=== PATIENT | female | born 1955 ===

== ENCOUNTER 2017-11-10 08:43 | Day surgery (SDC) | payer MEDICAID ==
[2017-11-10] MEDS ORDERED: Propofol 10 mg/ml Inj (20 ML) ONE (12:09)
[2017-11-10] MEDS ORDERED: Lidocaine 2% MPF (5 ml) Inj ONE (12:09)
[2017-11-10] MEDS ORDERED: Lactated Ringer's 1,000 ML IV ONE (12:12)
[2017-11-10 12:58] VITALS: BP 117/41; PULSE 68; RESP 17; TEMP 97; O2SAT 97
== END 2017-11-10 13:38 | disposition home or self-care (01) ==
LOC: H.ENDO 08:43
PROVIDERS: ATTEND Internal Medicine Gastroenterology
DX: Z12.11 Encounter for screening for malignant neoplasm of colon (principal); E11.9 Type 2 diabetes mellitus without complications; I10 Essential (primary) hypertension; E03.9 Hypothyroidism, unspecified; K64.8 Other hemorrhoids; K57.30 Diverticulosis of large intestine without perforation or abscess without bleeding
CPT/HCPCS: 45378; J2704; J7120

== ENCOUNTER 2019-03-13 16:13 | Inpatient (IN) | payer MEDICAID ==
--- NOTE | 2019-03-13 16:57 | ED PDOC ---
HPI: SOB/CHF/COPD Time Seen by Provider: 03/13/19 16:26 Chief Complaint (Nursing): Shortness Of Breath Chief Complaint (Provider): Shortness Of Breath History Per: Patient History/Exam Limitations: no limitations Onset/Duration Of Symptoms: Persistent, Worse Since (last night) Current Symptoms Are (Timing): Still Present Additional Complaint(s): 63 year old female with medical history of diabetes and hypertension, arrives to the emergency department with friend present as nuclear powerplant mechanic (preferred) for an evaluation of intermittent shortness of breath since last night. Additionally, she reports leg swelling bilaterally for the past 3-4 weeks. Patient was seen by her PCP recently with (-) findings on lower extremities ultrasound. Otherwise, she denies othropnea, chest pain, palpitations, cough, fever, chills, or similar episodes in the past. Past Medical History Reviewed: Historical Data, Nursing Documentation, Vital Signs Vital Signs: Last Vital Signs Temp 99.2 F 03/13/19 16:30 Pulse 74 03/13/19 16:30 Resp 20 03/13/19 16:30 BP 142/60 03/13/19 16:30 Pulse Ox 98 03/13/19 16:30 Primary Care Provider: [place] - Medical History PMH: Diabetes, HTN, Hypothyroidism - Surgical History Surgical History: CABG - Family History Family History: States: Unknown Family Hx - Social History Current smoker - smoking cessation education provided: No Alcohol: None Drugs: Denies - Home Medications Home Medications: Ambulatory Orders Medication Instructions Recorded Aspirin [Ecotrin] 1 tab PO DAILY 11/10/17 Atorvastatin [Lipitor] 1 tab PO DAILY 11/10/17 Carvedilol [Coreg] 1 tab PO DAILY 11/10/17 Clopidogrel [Plavix] 1 tab PO DAILY 11/10/17 Levothyroxine [Synthroid] 1 tab PO DAILY 11/10/17 Niacin [Plain Niacin] 1 tab PO DAILY 11/10/17 Pantoprazole [Protonix EC Tab] 1 tab PO DAILY 11/10/17 Valsartan/Hydrochlorothiazide 1 tab PO DAILY 11/10/17 [Valsartan-Hctz 320-25 mg Tab] amLODIPine [Norvasc] 1 tab PO DAILY 11/10/17 Insulin Glargine,Hum.rec.anlog 100 unit SQ HS 03/14/19 [Basaglar Kwikpen U-100] Insulin Lispro Mix 75/25 [HumaLOG 1 units SC BID PRN 03/14/19 Mix 75/25] Cyanocobalamin [Vitamin B12 1000 1,000 mcg PO DAILY #30 tab 03/15/19 mcg Tab] Magnesium Oxide [Mag-Ox] 400 mg PO DAILY #30 tab 03/15/19 MetFORMIN [glucoPHAGE] 1,000 mg PO BIDWM #60 tab 03/15/19 - Allergies Allergies/Adverse Reactions: Allergies Allergy/AdvReac Type Severity Reaction Status Date / Time No Known Allergies Allergy Verified 03/13/19 16:15 Review of Systems ROS Statement: Except As Marked, All Systems Reviewed And Found Negative Constitutional: Negative for: Fever, Chills Cardiovascular: Negative for: Chest Pain, Palpitations Respiratory: Positive for: Shortness of Breath. Negative for: Cough, Other (orthopnea) Musculoskeletal: Positive for: Other (bilateral leg swelling) Physical Exam - Reviewed Nursing Documentation Reviewed: Yes Vital Signs Reviewed: Yes - Physical Exam Appears: Positive for: Non-toxic, No Acute Distress Head Exam: Positive for: ATRAUMATIC, NORMAL INSPECTION, NORMOCEPHALIC Skin: Positive for: Normal Color Eye Exam: Positive for: Normal appearance, EOMI, PERRL ENT: Positive for: Normal ENT Inspection Neck: Positive for: Normal, Supple Cardiovascular/Chest: Positive for: Regular Rate, Rhythm Respiratory: Positive for: Crackles (right base). Negative for: Respiratory Distress Gastrointestinal/Abdominal: Positive for: Normal Exam, Soft. Negative for: Tenderness Extremity: Positive for: Pedal Edema (+3 pitting edema bilaterally). Negative for: Calf Tenderness Neurological/Psych: Positive for: Awake, Alert, Normal Tone, Other (speaking full sentences with clear speech) - Laboratory Results Result Diagrams: 03/15/19 11:50 03/15/19 04:50 - ECG Interpretation Of ECG: NSR @ 68, no ST-T changes. O2 Sat by Pulse Oximetry: 98 (RA) Pulse Ox Interpretation: Normal Medical Decision Making Medical Decision Making: Time: 910 Initial Plan: * EKG * Labs * CXR * US duplex LE Scribe Attestation: Documented by Iesha Mccann, acting as a scribe for Jonna Ferrer MD. Provider Scribe Attestation: All medical record entries made by the Scribe were at my direction and personally dictated by me. I have reviewed the chart and agree that the record accurately reflects my personal performance of the history, physical exam, medical decision making, and the department course for this patient. I have also personally directed, reviewed, and agree with the discharge instructions and disposition. Disposition - Clinical Impression Clinical Impression: CHF (congestive heart failure) - Disposition Disposition: Transfer of Care Disposition Time: 19:00 Condition: STABLE Patient Signed Over To: Terese Downing
[2019-03-13 17:03] LABS: BASO % 0.5 % (0.0-2.0); EOS # 0.1 K/uL (0.0-0.7); EOS % 1.5 % (0.0-4.0); HEMOGLOBIN 9.9 g/dL (12.0-16.0); LYMPH # 1.8 K/uL (1.0-4.3); LYMPH % 23.4 % (20.0-40.0); MEAN CELL VOLUME 86.5 fl (81.0-99.0); MEAN CORPUSCULAR HEMOGLOBIN 28.8 pg (27.0-31.0); MEAN CORPUSCULAR HGB CONC 33.3 g/dL (33.0-37.0); MEAN PLATELET VOLUME 10.7 fl (7.2-11.7); MONO # 0.7 K/uL (0.0-0.8); NEUT % 65.6 % (50.0-75.0); RBC 3.44 Mil/uL (3.80-5.20); RED CELL DISTRIBUTION WIDTH 14.1 % (11.5-14.5); WHITE BLOOD COUNT 7.6 K/uL (4.8-10.8)
[2019-03-13 17:09] LABS: PROTHROMBIN TIME 11.5 Seconds (9.8-13.1)
[2019-03-13 17:10] LABS: PARTIAL THROMBOPLASTIN TIME 32.8 Seconds (25.6-37.1)
--- NOTE | 2019-03-13 17:48 | RAD ---
Date of service: 03/13/2019 HISTORY: SOB COMPARISON: 09/14/2012 TECHNIQUE: Chest PA and lateral views FINDINGS: LUNGS: No active pulmonary disease. PLEURA: No significant pleural effusion identified. No pneumothorax apparent. CARDIOVASCULAR: No aortic atherosclerotic calcification present. Normal cardiac size. Status post CABG. No congestive change. OSSEOUS STRUCTURES: No significant abnormalities. VISUALIZED UPPER ABDOMEN: Normal. OTHER FINDINGS: None. IMPRESSION: No active disease.
--- NOTE | 2019-03-13 17:50 | US ---
Date of service: 03/13/2019 PROCEDURE: Bilateral lower extremity venous duplex Doppler. HISTORY: BLE swelling COMPARISON: None available. TECHNIQUE: Bilateral common femoral, superficial femoral, popliteal and posterior tibial veins were evaluated. Flow was assessed with color Doppler, compressibility, assessment of phasic flow and augmentation response. FINDINGS: COMMON FEMORAL VEIN: Right CFV: Unremarkable. Left CFV: Unremarkable. SUPERFICIAL FEMORAL VEIN: Right SFV: Unremarkable. Left SFV: Unremarkable. POPLITEAL VEIN: Right Popliteal: Unremarkable. Left Popliteal: Unremarkable. POSTERIOR TIBIAL VEIN: Right PTV: Unremarkable. Left PTV: Unremarkable. OTHER FINDINGS: None. IMPRESSION: No evidence of deep venous thrombosis in the right or left lower extremity
[2019-03-13 18:07] LABS: ALB/GLOB RATIO 1.2 (1.0-2.1); ALT/SGPT 17 U/L (9-52); AST/SGOT 18 U/L (14-36); BLOOD UREA NITROGEN 14 mg/dl (7-17); CALCIUM 8.6 mg/dL (8.4-10.2); GFR NON-AFRICAN AMERICAN > 60
[2019-03-13 18:19] LABS: B-TYPE NATRIURETIC PEPTIDE 1140 pg/ml (0-900)
[2019-03-13 18:31] LABS: SQUAMOUS EPITHIAL 1 /hpf (0-5); URINE BILIRUBIN NEGATIVE (NEGATIVE); URINE BLOOD NEGATIVE (NEGATIVE); URINE CLARITY CLEAR (Clear); URINE COLOR STRAW (YELLOW); URINE GLUCOSE (UA) NEG (NEGATIVE); URINE LEUKOCYTE ESTERASE TRACE Leu/uL (Negative); URINE PROTEIN NEGATIVE (NEGATIVE); URINE UROBILINOGEN 0.2-1.0 mg/dL (0.2-1.0)
[2019-03-13] MEDS ORDERED: Sodium Chloride 0.9% 50 ML IV ONE (18:32)
[2019-03-13] MEDS ORDERED: Iodixanol 320 MG/ML 100 ML BOTTLE IV ONE (18:32)
--- NOTE | 2019-03-13 19:11 | ED PDOC ---
- Laboratory Results Result Diagrams: 03/14/19 06:10 03/14/19 06:10 Lab Results: PT 11.5 Seconds (9.8-13.1) 03/13/19 16:56 INR 1.0 03/13/19 16:56 APTT 32.8 Seconds (25.6-37.1) 03/13/19 16:56 D-Dimer, Quantitative 347 ng/mlDDU (0-230) H 03/13/19 16:56 Troponin I < 0.0120 ng/mL (0.00-0.120) 03/13/19 17:53 NT-Pro-B Natriuret Pep 1140 pg/ml (0-900) H 03/13/19 17:53 Total Bilirubin 0.6 mg/dl (0.2-1.3) 03/13/19 17:53 AST 18 U/L (14-36) 03/13/19 17:53 ALT 17 U/L (9-52) 03/13/19 17:53 Alkaline Phosphatase 88 U/L (38-126) 03/13/19 17:53 Total Protein 7.3 G/DL (6.3-8.2) 03/13/19 17:53 Albumin 4.0 g/dL (3.5-5.0) 03/13/19 17:53 Globulin 3.3 gm/dL (2.2-3.9) 03/13/19 17:53 Albumin/Globulin Ratio 1.2 (1.0-2.1) 03/13/19 17:53 Urine Color Straw (YELLOW) 03/13/19 18:17 Urine Clarity Clear (Clear) 03/13/19 18:17 Urine pH 7.0 (5.0-8.0) 03/13/19 18:17 Ur Specific [place] 1.008 (1.003-1.030) 03/13/19 18:17 Urine Protein Negative mg/dL (NEGATIVE) 03/13/19 18:17 Urine Glucose (UA) Neg mg/dL (NEGATIVE) 03/13/19 18:17 Urine Ketones Negative mg/dL (NEGATIVE) 03/13/19 18:17 Urine Blood Negative (NEGATIVE) 03/13/19 18:17 Urine Nitrate Negative (NEGATIVE) 03/13/19 18:17 Urine Bilirubin Negative (NEGATIVE) 03/13/19 18:17 Urine Urobilinogen 0.2-1.0 mg/dL (0.2-1.0) 03/13/19 18:17 Ur Leukocyte Esterase Trace Teodoro/uL (Negative) 03/13/19 18:17 Urine RBC (Auto) < 1 /hpf (0-3) 03/13/19 18:17 Urine Microscopic WBC 2 /hpf (0-5) 03/13/19 18:17 Ur Squamous Epith Cells 1 /hpf (0-5) 03/13/19 18:17 - ECG O2 Sat by Pulse Oximetry: 98 (RA) Medical Decision Making Medical Decision Makin Patient care endorsed from Dr. Ferrer to this provider pending CTA and reevaluation. CTA FINDINGS: PULMONARY ARTERIES No evidence of central or segmental pulmonary embolism is seen. AORTA There is no evidence for aneurysm or dissection of the thoracic aorta. LUNGS There is a patchy infiltrate both lungs particularly the right lung base with underlying interstitial edema and vascular congestion suspected. PLEURAL SPACES Small right pleural effusion and minimal left pleural effusion. HEART Heart is increased in size. LYMPH NODES No lymphadenopathy is evident. BONES Sternotomy wires present. UPPER ABDOMEN Images of the upper abdomen are unremarkable. IMPRESSION: No evidence of primary embolic disease. Underlying mild congestive heart failure suspected. Mild patchy infiltrate both lungs particularly right lower lung. Small right pleural effusion and small left pleural effusion. Enlarged heart. Sternotomy wires. 2038 Pro-BNP elevated to 1140. CTA shows possible pneumonia in right lower lung especially, but WBCs normal. Likely CHF vs. pneumonia and will admit to [facility]. chandler king aware. Scribe Attestation: Documented by Tara Macdonald, acting as a scribe for Terese Downing MD. Provider Scribe Attestation: All medical record entries made by the Scribe were at my direction and personally dictated by me. I have reviewed the chart and agree that the record accurately reflects my personal performance of the history, physical exam, medical decision making, and the department course for this patient. I have also personally directed, reviewed, and agree with the discharge instructions and disposition. Disposition - Clinical Impression Clinical Impression: CHF (congestive heart failure) - POA Present On Arrival: None - Disposition Disposition: Admitted as In-Patient Disposition Time: 20:30 Condition: STABLE
[2019-03-13] MEDS ORDERED: Azithromycin 500 MG in Sodium Chloride 0.9% 250 ML IVPB STA (20:40)
[2019-03-13] MEDS ORDERED: cefTRIAXone (Rocephin) 1 gm Inj ONE (23:48)
[2019-03-14] MEDS ORDERED: Azithromycin 500 MG IV IVPB ONE (01:52)
[2019-03-14 06:30] LABS: BASO % 0.5 % (0.0-2.0); EOS # 0.1 K/uL (0.0-0.7); EOS % 0.9 % (0.0-4.0); LYMPH # 1.8 K/uL (1.0-4.3); LYMPH % 21.9 % (20.0-40.0); MEAN CORPUSCULAR HEMOGLOBIN 28.7 pg (27.0-31.0); MEAN PLATELET VOLUME 10.8 fl (7.2-11.7); MONO # 0.6 K/uL (0.0-0.8); MONO % 7.3 % (0.0-10.0); NEUT # 5.6 K/uL (1.8-7.0); NEUT % 69.4 % (50.0-75.0); NRBC % 0.1 % (0.0-0.0); RBC 3.49 Mil/uL (3.80-5.20); RED CELL DISTRIBUTION WIDTH 13.8 % (11.5-14.5); WHITE BLOOD COUNT 8.1 K/uL (4.8-10.8)
[2019-03-14 06:57] LABS: ALB/GLOB RATIO 1.2 (1.0-2.1); ALT/SGPT 21 U/L (9-52); AST/SGOT 21 U/L (14-36); BLOOD UREA NITROGEN 14 mg/dl (7-17); CALCIUM 8.9 mg/dL (8.4-10.2); GFR NON-AFRICAN AMERICAN > 60
--- NOTE | 2019-03-14 07:43 | CT ---
Date of service: 03/13/2019 PROCEDURE: CT Chest with contrast (Pulmonary Angiogram) HISTORY: SOB COMPARISON: None available. TECHNIQUE: Axial computed tomography images were obtained of the chest in the pulmonary arterial phase of enhancement. Coronal and sagittal reformatted images were created and reviewed. Intravenous contrast dose: 73 cc Visipaque 320. Mean Hounsfield value in the main pulmonary artery: 312.89 Radiation dose: Total exam DLP = 367.52 mGy-cm. This CT exam was performed using one or more of the following dose reduction techniques: Automated exposure control, adjustment of the mA and/or kV according to patient size, and/or use of iterative reconstruction technique. FINDINGS: PULMONARY ARTERIES: Unremarkable. No pulmonary embolism. AORTA: No acute findings. No thoracic aortic aneurysm. Atherosclerotic calcifications identified primarily aortic arch. LUNGS: 5 mm pulmonary nodule anterior segment right upper lobe. 5 mm pulmonary nodule superior segment left lower lobe. Multifocal infiltrates. Thickening of interlobular septa. PLEURAL SPACES: Trace right pleural effusion. HEART: Unremarkable. No cardiomegaly. No significant pericardial effusion. LYMPH NODES: No lymphadenopathy. BONES, CHEST WALL: Unremarkable. No fracture or destructive lesion OTHER FINDINGS: Unremarkable. IMPRESSION: Unremarkable CT pulmonary angiogram. No pulmonary embolus. Pulmonary vascular congestion/CHF. Associated trace right pleural effusion. There are multiple pulmonary nodules that are < 6 mm in size. According to the 2017 Fleischner criteria, if the patient is low risk, no routine follow-up is recommended. If the patient is high risk, an optional CT at 12 months is recommended. Concordant results (preliminary interpretation) provided by [employer]. Procedure Completed: 18:36. Preliminary Report: Interpreted and electronically signed: 20:08. Final Interpretation: 07:39.
--- NOTE | 2019-03-14 09:15 | CP.PCM.HP ---
History of Present Illness - History of Present Illness History of Present Illness: pt admitted for new onset chf. had progressive leg swelling and dyspnea on exertion. no f/,c n/v/d. cxr negative. ct chest-patchy infiltrate. no reported cough/fever. all bwand imaging noted. Present on Admission - Present on Admission Any Indicators Present on Admission: Yes History of Uncontrolled Diabetes: Yes Review of Systems - Cardiovascular Cardiovascular: As Per HPI, Pedal Edema - Respiratory Respiratory: As Per HPI, Dyspnea on Exertion Past Patient History - Past Medical History & Family History Past Medical History?: Yes - Past Social History Alcohol: None Drugs: Denies - CARDIAC Hx Cardiac Disorders: Yes - ENDOCRINE/METABOLIC Hx Endocrine Disorders: Yes - PSYCHIATRIC Hx Substance Use: No - SURGICAL HISTORY Hx Coronary Artery Bypass Graft: Yes - ANESTHESIA Hx Anesthesia: Yes Hx Anesthesia Reactions: No Hx Malignant Hyperthermia: No Meds Allergies/Adverse Reactions: Allergies Allergy/AdvReac Type Severity Reaction Status Date / Time No Known Allergies Allergy Verified 03/13/19 16:15 Physical Exam - Constitutional Appears: Well, Non-toxic, No Acute Distress - Head Exam Head Exam: ATRAUMATIC, NORMAL INSPECTION, NORMOCEPHALIC - Eye Exam Eye Exam: EOMI, Normal appearance, PERRL Pupil Exam: NORMAL ACCOMODATION, PERRL - ENT Exam ENT Exam: Mucous Membranes Moist, Normal Exam - Neck Exam Neck exam: Positive for: Normal Inspection - Respiratory Exam Respiratory Exam: Clear to Auscultation Bilateral, NORMAL BREATHING PATTERN - Cardiovascular Exam Cardiovascular Exam: REGULAR RHYTHM, RRR, +S1, +S2 - GI/Abdominal Exam GI & Abdominal Exam: Normal Bowel Sounds, Soft. absent: Tenderness - Extremities Exam Extremities exam: Positive for: full ROM, normal capillary refill, normal inspe ction, pedal edema, pedal pulses present - Back Exam Back exam: FULL ROM, NORMAL INSPECTION - Neurological Exam Neurological exam: Alert, CN II-XII Intact, Normal Gait, Oriented x3, Reflexes Normal - Psychiatric Exam Psychiatric exam: Normal Affect, Normal Mood - Skin Skin Exam: Dry, Intact, Normal Color, Warm Results - Vital Signs Recent Vital Signs: Last Vital Signs Temp 98.5 F 03/14/19 07:30 Pulse 69 03/14/19 08:56 Resp 18 03/14/19 08:56 BP 140/76 03/14/19 08:56 Pulse Ox 96 03/14/19 08:56 - Labs Result Diagrams: 03/14/19 06:10 03/14/19 06:10 Labs: Laboratory Results - last 24 hr 03/13/19 03/13/19 03/13/19 16:56 16:56 16:56 WBC 7.6 RBC 3.44 L Hgb 9.9 L Hct 29.7 L MCV 86.5 MCH 28.8 MCHC 33.3 RDW 14.1 Plt Count 277 MPV 10.7 Neut % (Auto) 65.6 Lymph % (Auto) 23.4 [place] % (Auto) 9.0 Eos % (Auto) 1.5 Baso % (Auto) 0.5 Neut # (Auto) 5.0 Lymph # (Auto) 1.8 [place] # (Auto) 0.7 Eos # (Auto) 0.1 Baso # (Auto) 0.0 PT 11.5 INR 1.0 APTT 32.8 D-Dimer, Quantitative 347 H Sodium Cancelled Potassium Cancelled Chloride Cancelled Carbon Dioxide Cancelled Anion Gap Cancelled BUN Cancelled Creatinine Cancelled Est GFR ( Amer) Cancelled Est GFR (Non-Af Amer) Cancelled POC Glucose (mg/dL) Random Glucose Cancelled Calcium Cancelled Total Bilirubin Cancelled AST Cancelled ALT Cancelled Alkaline Phosphatase Cancelled Troponin I Cancelled NT-Pro-B Natriuret Pep Cancelled Total Protein Cancelled Albumin Cancelled Globulin Cancelled Albumin/Globulin Ratio Cancelled Urine Color Urine Clarity Urine pH Ur Specific [place] Urine Protein Urine Glucose (UA) Urine Ketones Urine Blood Urine Nitrate Urine Bilirubin Urine Urobilinogen Ur Leukocyte Esterase Urine RBC (Auto) Urine Microscopic WBC Ur Squamous Epith Cells 03/13/19 03/13/19 03/14/19 17:53 18:17 06:10 WBC 8.1 RBC 3.49 L Hgb 10.0 L Hct 30.4 L MCV 87.0 MCH 28.7 MCHC 33.0 RDW 13.8 Plt Count 230 MPV 10.8 Neut % (Auto) 69.4 Lymph % (Auto) 21.9 [place] % (Auto) 7.3 Eos % (Auto) 0.9 Baso % (Auto) 0.5 Neut # (Auto) 5.6 Lymph # (Auto) 1.8 [place] # (Auto) 0.6 Eos # (Auto) 0.1 Baso # (Auto) 0.0 PT INR APTT D-Dimer, Quantitative Sodium 138 Potassium 4.5 Chloride 101 Carbon Dioxide 26 Anion Gap 16 BUN 14 Creatinine 0.8 Est GFR ( Amer) > 60 Est GFR (Non-Af Amer) > 60 POC Glucose (mg/dL) Random Glucose 138 H Calcium 8.6 Total Bilirubin 0.6 AST 18 ALT 17 Alkaline Phosphatase 88 Troponin I < 0.0120 NT-Pro-B Natriuret Pep 1140 H Total Protein 7.3 Albumin 4.0 Globulin 3.3 Albumin/Globulin Ratio 1.2 Urine Color Straw Urine Clarity Clear Urine pH 7.0 Ur Specific [place] 1.008 Urine Protein Negative Urine Glucose (UA) Neg Urine Ketones Negative Urine Blood Negative Urine Nitrate Negative Urine Bilirubin Negative Urine Urobilinogen 0.2-1.0 Ur Leukocyte Esterase Trace Urine RBC (Auto) < 1 Urine Microscopic WBC 2 Ur Squamous Epith Cells 1 03/14/19 03/14/19 03/14/19 06:10 06:10 07:50 WBC RBC Hgb Hct MCV MCH MCHC RDW Plt Count MPV Neut % (Auto) Lymph % (Auto) [place] % (Auto) Eos % (Auto) Baso % (Auto) Neut # (Auto) Lymph # (Auto) [place] # (Auto) Eos # (Auto) Baso # (Auto) PT INR APTT D-Dimer, Quantitative Sodium 139 Potassium 4.3 Chloride 98 Carbon Dioxide 31 H Anion Gap 14 BUN 14 Creatinine 0.7 Est GFR ( Amer) > 60 Est GFR (Non-Af Amer) > 60 POC Glucose (mg/dL) 135 H Random Glucose 149 H Calcium 8.9 Total Bilirubin 0.6 AST 21 ALT 21 Alkaline Phosphatase 89 Troponin I < 0.0120 NT-Pro-B Natriuret Pep 1410 H Total Protein 7.4 Albumin 4.0 Globulin 3.4 Albumin/Globulin Ratio 1.2 Urine Color Urine Clarity Urine pH Ur Specific [place] Urine Protein Urine Glucose (UA) Urine Ketones Urine Blood Urine Nitrate Urine Bilirubin Urine Urobilinogen Ur Leukocyte Esterase Urine RBC (Auto) Urine Microscopic WBC Ur Squamous Epith Cells Assessment & Plan (1) CHF (congestive heart failure) Assessment and Plan: echo cardio probnp,trop lasix in er asa, lipitor-pt takes at home Status: Acute (2) DVT prophylaxis Assessment and Plan: scd nad ae hose ambulation Status: Acute (3) CAD (coronary artery disease) Assessment and Plan: cardio echo cont home meds Status: Acute (4) Diabetes type 2, uncontrolled Assessment and Plan: fsbg, diet control home meds Status: Acute Decision To Admit - Pt Status Changed To: Hospital Disposition Of: Inpatient - Admit Certification Admit to Inpatient:: After my assessment, the patient will require h ospitalization for at least two midnights. This is because of the severity of symptoms shown, intensity of services needed, and/or the medical risk in this patient being treated as an outpatient. - . Bed Request Type: Telemetry Admitting Physician: Beny Aldridge
[2019-03-14] MEDS ORDERED: EMPAGLIFLOZIN PO SCH (11:30)
[2019-03-14] MEDS ORDERED: Patient's Own Med (Valsartan/Hydrochlorothiazide [Valsartan-Hctz 320-25 Mg Tab] 1 TAB) PO SCH (11:30)
[2019-03-14] MEDS ORDERED: Levothyroxine 150 MCG TAB PO SCH (11:30)
[2019-03-14] MEDS ORDERED: NIACIN 500 MG TABLET PO SCH (11:30)
--- NOTE | 2019-03-14 11:55 | CARD ---
APPROVED REPORT Date of service: 03/13/2019 EKG Measurement Heart [id number] <Conclusion> Normal sinus rhythm Normal ECG
[2019-03-14] MEDS: Pantoprazole 40 mg EC Tab PO SCH (13:02)
--- NOTE | 2019-03-14 15:50 | CARD ---
APPROVED REPORT Date of service: 03/14/2019 EXAM: Two-dimensional and M-mode echocardiogram with Doppler and color Doppler. Other Information Quality : GoodRhythm : NSR INDICATION Congestive Heart Failure 2D DIMENSIONS IVSd0.94 (0.7-1.1cm)LVDd4.40 (3.9-5.9cm) LVOT Diameter1.85 (1.8-2.4cm)PWd0.82 (0.7-1.1cm) IVSs1.01 (0.8-1.2cm)LVDs4.47 (2.5-4.0cm) FS (%) 1.5 %PWs0.83 (0.8-1.2cm) M-Mode DIMENSIONS Left Atrium (MM)3.85 (2.5-4.0cm)IVSd0.88 (0.7-1.1cm) Aortic Root2.76 (2.2-3.7cm)LVDd4.59 (4.0-5.6cm) Aortic Cusp Exc.1.74 (1.5-2.0cm)PWd0.88 (0.7-1.1cm) IVSs1.12 cmFS (%) 38 % LVDs2.85 (2.0-3.8cm)PWs1.32 cm Aortic Valve AoV Peak Pwbpuqah548.8cm/sAoV VTI45.4cmAO Peak GR.14mmHg LVOT Peak Sqdxyvvv662.9cm/sLVOT VTI28.57cmAO Mean GR.8mmHg BONNIE (VMAX)0.36fu1LAV (VTI)0.90cm2 Mitral Valve MV E Fdnaubrw759.8cm/sMV DECEL VOEX082zhOT A Mtnchsae49.8cm/s MV JAI97cqY/A ratio1.3MVA (PHT)4.07cm2 TDI Lateral E' Peak V6.60cm/sMedial E' Peak V5.38cm/sE/Lateral E'18.8 E/Medial E'23.0 Tricuspid Valve TR Peak Yoytvpyj715tb/sRAP [id number] Peak Gr.20mmHg [id number] LEFT VENTRICLE The left ventricle is normal size. There is normal left ventricular wall thickness. The left ventricular systolic function is normal. The estimated ejection fraction is 55-60% No regional wall motion abnormalities noted.. Transmitral Doppler flow pattern is Grade II-pseudonormal filling dynamics. No left ventricle thrombus noted on this study. There is no ventricular septal defect visualized. There is no left ventricular aneurysm. There is no mass noted in the left ventricle. RIGHT VENTRICLE The right ventricle is normal size. There is normal right ventricular wall thickness. The right ventricular systolic function is normal. ATRIA The left atrium is mildly dilated. The right atrium size is normal. The interatrial septum is intact with no evidence for an atrial septal defect. AORTIC VALVE The aortic valve is normal in structure. No aortic regurgitation is present. There is no aortic valvular stenosis. There is no aortic valvular vegetation. MITRAL VALVE The mitral valve is normal in structure. There is no evidence of mitral valve prolapse. There is no mitral valve stenosis. There is no mitral valve regurgitation noted. TRICUSPID VALVE The tricuspid valve is normal in structure. There is mild tricuspid valve regurgitation noted. RVSP is calculated at less than 25 mm Hg. There is no tricuspid valve prolapse or vegetation. There is no tricuspid valve stenosis. PULMONIC VALVE The pulmonary valve is normal in structure. There is no pulmonic valvular regurgitation. There is no pulmonic valvular stenosis. GREAT VESSELS The aortic root is normal in size. The ascending aorta is normal in size. The pulmonary artery is normal. The IVC is normal in size and collapses >50% with inspiration. PERICARDIAL EFFUSION There is no pericardial effusion. There is no pleural effusion. <Conclusion> The estimated ejection fraction is 55-60% Transmitral Doppler flow pattern is Grade II-pseudonormal filling dynamics. The left atrium is mildly dilated. There is mild tricuspid valve regurgitation noted. RVSP is calculated at less than 25 mm Hg.
[2019-03-14] MEDS: Azithromycin 500 MG in Sodium Chloride 0.9% 250 ML IVPB SCH (17:09)
--- NOTE | 2019-03-14 17:42 | CP.PCM.CON ---
History of Present Illness - History of Present Illness History of Present Illness: I was asked to see patient by Dr Munoz Patient seen 03/14/19 [id number] patient is a 63 year old female with HTN, CAD s/p CABG, hypercholetserolemia who presents with edema. Symptoms began about 3 weeks ago, and she has noted pr ogressive swelling of the lower extremities. She denies dyspnea. Routine medical care is with Dr Downey. Review of Systems - Constitutional Constitutional: absent: As Per HPI, Anorexia, Chills, Daytime Sleepiness, Excessive Sweating, Fatigue, Fever, Frequent Falls, Headache, Increased Appetite, Lethargy, Malaise, Night Sweats, Snoring, Sleep Apnea, Weight Gain, Weight Loss, Weakness, Other - EENT Eyes: absent: As Per HPI, Blind Spots, Blurred Vision, Change in Vision, Decreased Night Vision, Diplopia, Discharge, Dry Eye, Exophthalmos, Floaters, Irritation, Itchy Eyes, Loss of Peripheral Vision, Pain, Photophobia, Requires Corrective Lenses, Sees Flashes, Spots in Vision, Tunnel Vision, Other Visual Disturbances, Loss of Vision, Other Ears: absent: As Per HPI, Decreased Hearing, Ear Discharge, Ear Pain, Tinnitus, Abnormal Hearing, Disequilibrium, Dizziness, Other Nose/Mouth/Throat: absent: As Per HPI, Epistaxis, Nasal Congestion, Nasal Discharge, Nasal Obstruction, Nasal Trauma, Nose Pain, Post Nasal Drip, Sinus Pain, Sinus Pressure, Bleeding Gums, Change in Voice, Dental Pain, Dry Mouth, Dysphagia, Halitosis, Hoarsness, Lip Swelling, Mouth Lesions, Mouth Pain, Odynophagia, Sore Throat, Throat Swelling, Tongue Swelling, Facial Pain, Neck Pain, Neck Mass, Other - Cardiovascular Cardiovascular: Leg Edema - Respiratory Respiratory: absent: As Per HPI, Cough, Dyspnea, Hemoptysis, Dyspnea on Exertion, Wheezing, Snoring, Stridor, Pain on Inspiration, Chest Congestion, Excessive Mucous Production, Change in Mucous Color, Pain with Coughing, Other - Gastrointestinal Gastrointestinal: absent: As Per HPI, Abdominal Pain, Belching, Bloating, Change in Bowel Habits, Change in Stool Character, Coffee Ground Emesis, Constipation, Cramping, Diarrhea, Dyspepsia, Dysphagia, Early Satiety, Excessive Flatus, Fecal Incontinence, Heartburn, Hematemesis, Hematochezia, Loose Stools, Melena, Nausea, Odynophagia, Temesmus, Vomiting, Other - Genitourinary Genitourinary: absent: As Per HPI, Change in Urinary Stream, Difficulty Urinating, Dysuria, Flank Pain, Hematuria, Pyuria, Nocturia, Urinary Incontinence, Urinary Frequency, Urinary Hesitance, Urinary Urgency, Voiding Freq/Small Amts, Freq UTI, Hx Renal/Bladder Calculi, Hx /Renal Surgery, Bladder Distension, Other - Musculoskeletal Musculoskeletal: absent: As Per HPI, Abnormal Gait, Arthralgias, Atrophy, Back Pain, Deformity, Joint Swelling, Limited Range of Motion, Loss of Height, Muscle Cramps, Muscle Weakness, Myalgias, Neck Pain, Numbness, Radiating Pain into Limb, Stiffness, Tingling, Other - Integumentary Integumentary: absent: As Per HPI, Acne, Alopecia, Bleeding Lesions, Change in Hair, Change in Nails, Change in Pigmentation, Changing Lesions, Dry Skin, Erythema, Furuncle, Hirsutism, Lesions, New Lesions, Non-Healing Lesions, Photosensitivity, Pruritus, Rash, Skin Pain, Skin Ulcer, Sores, Striae, Swelling, Unusual Bruising, Wounds, Jaundice, Other - Neurological Neurological: absent: As Per HPI, Abnormal Gait, Abnormal Hearing, Abnormal Movements, Abnormal Speech, Behavioral Changes, Burning Sensations, Confusion, Convulsions, Disequilibrium, Dizziness, Numbness, Focal Weakness, Frequent Falls, Headaches, Lack of Coordination, Loss of Vision, Memory Loss, Paresthesias, Radicular Pain, Restless Legs, Sensory Deficit, Syncope, Tingling, Tremor, Vertigo, Weakness, Other Visual Disturbances, Other - Psychiatric Psychiatric: absent: As Per HPI, Abnormal Sleep Pattern, Anhedonia, Anxiety, Auditory Hallucinations, Behavioral Changes, Change in Appetite, Change in Libido, Confusion, Depression, Difficulty Concentrating, Hallucinations, Homicidal Ideation, Hopelessness, Irritability, Memory Loss, Mood Swings, Panic Attacks, Paranoia, Suicidal Ideation, Visual Hallucinations, Tactile Hallucinations, Other - Endocrine Endocrine: absent: As Per HPI, Change in Body Appearance, Change in Libido, Cold Intolorance, Deepening of Voice, Excessive Sweating, Fatigue, Flushing, Heat Intolorance, Increase in Ring/Shoe/Hat Size, Palpitations, Polydipsia, Polyphagia, Polyuria, Other - Hematologic/Lymphatic Hematologic: absent: As Per HPI, Easy Bleeding, Easy Bruising, Lymphadenopathy, Other Past Patient History - Past Medical History & Family History Past Medical History?: Yes - Past Social History Alcohol: None Drugs: Denies - CARDIAC Hx Cardiac Disorders: Yes - ENDOCRINE/METABOLIC Hx Endocrine Disorders: Yes - HEMATOLOGICAL/ONCOLOGICAL Hx AIDS: No Hx Human Immunodeficiency Virus (HIV): No - MUSCULOSKELETAL/RHEUMATOLOGICAL Hx Falls: No - PSYCHIATRIC Hx Substance Use: No - SURGICAL HISTORY Hx Coronary Artery Bypass Graft: Yes - ANESTHESIA Hx Anesthesia: Yes Hx Anesthesia Reactions: No Hx Malignant Hyperthermia: No Meds Allergies/Adverse Reactions: Allergies Allergy/AdvReac Type Severity Reaction Status Date / Time No Known Allergies Allergy Verified 03/13/19 16:15 - Medications Medications: Current Medications Aspirin (Ecotrin) 81 mg PO DAILY [facility] Last Admin: 03/14/19 13:01 Dose: 81 mg Atorvastatin Calcium (Lipitor) 80 mg PO DAILY [facility] Last Admin: 03/14/19 13:02 Dose: Not Given Carvedilol (Coreg) 6.25 mg PO Q12 [facility] Last Admin: 03/14/19 13:01 Dose: 6.25 mg Clopidogrel Bisulfate (Plavix) 75 mg PO DAILY [facility] Last Admin: 03/14/19 13:02 Dose: 75 mg Home Med (Empagliflozin [Jardiance]) 1 tab PO DAILY [facility] Home Med (Valsartan/Hydrochlorothiazide [Valsartan-Hctz 320-25 Mg Tab]) 1 tab PO DAILY [facility] Azithromycin 500 mg/ Sodium (Chloride) 250 mls @ 250 mls/hr IVPB DAILY [facility]; Protocol Last Admin: 03/14/19 17:09 Dose: 250 mls/hr Ceftriaxone Sodium 1 gm/ (Sodium Chloride) 100 mls @ 100 mls/hr IVPB DAILY [facility]; Protocol Last Admin: 03/14/19 17:09 Dose: 100 mls/hr Insulin Human Lispro (Humalog) 0 units SC ACHS [facility]; Protocol Levothyroxine Sodium (Synthroid) 150 mcg PO DAILY@0630 [facility] Niacin (Niacin) 500 mg PO DAILY [facility] Last Admin: 03/14/19 17:08 Dose: 500 mg Pantoprazole Sodium (Protonix Ec Tab) 40 mg PO DAILY [facility] Last Admin: 03/14/19 13:02 Dose: 40 mg Physical Exam - Constitutional Appears: Non-toxic - Head Exam Head Exam: NORMAL INSPECTION - Eye Exam Eye Exam: Normal appearance - ENT Exam ENT Exam: Mucous Membranes Moist - Neck Exam Neck exam: Positive for: Full Rom, Normal Inspection - Respiratory Exam Respiratory Exam: NORMAL BREATHING PATTERN - Cardiovascular Exam Cardiovascular Exam: REGULAR RHYTHM. absent: Systolic Murmur - GI/Abdominal Exam GI & Abdominal Exam: Normal Bowel Sounds, Soft - Rectal Exam Rectal Exam: Deferred - Extremities Exam Extremities exam: Positive for: pedal edema - Back Exam Back exam: NORMAL INSPECTION - Neurological Exam Neurological exam: Alert, Normal Gait, Oriented x3 - Psychiatric Exam Psychiatric exam: Normal Affect - Skin Skin Exam: Normal Color Results - Vital Signs Recent Vital Signs: Last Vital Signs Temp 98.1 F 03/14/19 16:06 Pulse 70 03/14/19 16:06 Resp 18 03/14/19 16:06 BP 147/69 03/14/19 16:06 Pulse Ox 94 L 03/14/19 16:06 - Labs Result Diagrams: 03/14/19 06:10 03/14/19 06:10 Labs: Laboratory Results - last 24 hr 03/13/19 03/13/19 03/14/19 17:53 18:17 06:10 WBC 8.1 RBC 3.49 L Hgb 10.0 L Hct 30.4 L MCV 87.0 MCH 28.7 MCHC 33.0 RDW 13.8 Plt Count 230 MPV 10.8 Neut % (Auto) 69.4 Lymph % (Auto) 21.9 [place] % (Auto) 7.3 Eos % (Auto) 0.9 Baso % (Auto) 0.5 Neut # (Auto) 5.6 Lymph # (Auto) 1.8 [place] # (Auto) 0.6 Eos # (Auto) 0.1 Baso # (Auto) 0.0 Sodium 138 Potassium 4.5 Chloride 101 Carbon Dioxide 26 Anion Gap 16 BUN 14 Creatinine 0.8 Est GFR ( Amer) > 60 Est GFR (Non-Af Amer) > 60 POC Glucose (mg/dL) Random Glucose 138 H Calcium 8.6 Total Bilirubin 0.6 AST 18 ALT 17 Alkaline Phosphatase 88 Troponin I < 0.0120 NT-Pro-B Natriuret Pep 1140 H Total Protein 7.3 Albumin 4.0 Globulin 3.3 Albumin/Globulin Ratio 1.2 Urine Color Straw Urine Clarity Clear Urine pH 7.0 Ur Specific [place] 1.008 Urine Protein Negative Urine Glucose (UA) Neg Urine Ketones Negative Urine Blood Negative Urine Nitrate Negative Urine Bilirubin Negative Urine Urobilinogen 0.2-1.0 Ur Leukocyte Esterase Trace Urine RBC (Auto) < 1 Urine Microscopic WBC 2 Ur Squamous Epith Cells 1 03/14/19 03/14/19 03/14/19 06:10 06:10 07:50 WBC RBC Hgb Hct MCV MCH MCHC RDW Plt Count MPV Neut % (Auto) Lymph % (Auto) [place] % (Auto) Eos % (Auto) Baso % (Auto) Neut # (Auto) Lymph # (Auto) [place] # (Auto) Eos # (Auto) Baso # (Auto) Sodium 139 Potassium 4.3 Chloride 98 Carbon Dioxide 31 H Anion Gap 14 BUN 14 Creatinine 0.7 Est GFR ( Amer) > 60 Est GFR (Non-Af Amer) > 60 POC Glucose (mg/dL) 135 H Random Glucose 149 H Calcium 8.9 Total Bilirubin 0.6 AST 21 ALT 21 Alkaline Phosphatase 89 Troponin I < 0.0120 NT-Pro-B Natriuret Pep 1410 H Total Protein 7.4 Albumin 4.0 Globulin 3.4 Albumin/Globulin Ratio 1.2 Urine Color Urine Clarity Urine pH Ur Specific [place] Urine Protein Urine Glucose (UA) Urine Ketones Urine Blood Urine Nitrate Urine Bilirubin Urine Urobilinogen Ur Leukocyte Esterase Urine RBC (Auto) Urine Microscopic WBC Ur Squamous Epith Cells 03/14/19 15:56 WBC RBC Hgb Hct MCV MCH MCHC RDW Plt Count MPV Neut % (Auto) Lymph % (Auto) [place] % (Auto) Eos % (Auto) Baso % (Auto) Neut # (Auto) Lymph # (Auto) [place] # (Auto) Eos # (Auto) Baso # (Auto) Sodium Potassium Chloride Carbon Dioxide Anion Gap BUN Creatinine Est GFR ( Amer) Est GFR (Non-Af Amer) POC Glucose (mg/dL) 290 H Random Glucose Calcium Total Bilirubin AST ALT Alkaline Phosphatase Troponin I NT-Pro-B Natriuret Pep Total Protein Albumin Globulin Albumin/Globulin Ratio Urine Color Urine Clarity Urine pH Ur Specific [place] Urine Protein Urine Glucose (UA) Urine Ketones Urine Blood Urine Nitrate Urine Bilirubin Urine Urobilinogen Ur Leukocyte Esterase Urine RBC (Auto) Urine Microscopic WBC Ur Squamous Epith Cells - EKG Data EKG Interpreted by: Myself EKG shows normal: Sinus rhythm Assessment & Plan (1) Edema Assessment and Plan: LV function is normal by echocardiogram. It is unlikley that the patient has edema due to CHF. I recommend d/c Norvasc as it can congtribute to peripheral edema. Status: Acute (2) HTN (hypertension) Assessment and Plan: blood pressure control Status: Acute (3) CAD (coronary artery disease) Assessment and Plan: s/p CABG. no angina Status: Acute (4) Diabetes type 2, uncontrolled Status: Acute
[2019-03-14] MEDS: Insulin Lispro (humaLOG) 100 Units/ml Inj SC SCH ×2 (18:42→21:26)
[2019-03-15 06:04] LABS: BASO % 0.2 % (0.0-2.0); EOS # 0.1 K/uL (0.0-0.7); EOS % 0.7 % (0.0-4.0); HEMOGLOBIN 8.9 g/dL (12.0-16.0); LYMPH # 1.6 K/uL (1.0-4.3); LYMPH % 18.8 % (20.0-40.0); MEAN CELL VOLUME 87.4 fl (81.0-99.0); MEAN CORPUSCULAR HEMOGLOBIN 28.6 pg (27.0-31.0); MEAN CORPUSCULAR HGB CONC 32.8 g/dL (33.0-37.0); MEAN PLATELET VOLUME 11.5 fl (7.2-11.7); MONO # 0.4 K/uL (0.0-0.8); MONO % 5.4 % (0.0-10.0); NEUT # 6.2 K/uL (1.8-7.0); NEUT % 74.9 % (50.0-75.0); RBC 3.1 Mil/uL (3.80-5.20); WHITE BLOOD COUNT 8.3 K/uL (4.8-10.8)
[2019-03-15 06:24] LABS: ALB/GLOB RATIO 1.1 (1.0-2.1); ALBUMIN 3.3 g/dL (3.5-5.0); ALT/SGPT 12 U/L (9-52); AST/SGOT 16 U/L (14-36); BLOOD UREA NITROGEN 16 mg/dl (7-17); CALCIUM 8.1 mg/dL (8.4-10.2); GFR NON-AFRICAN AMERICAN > 60
[2019-03-15] MEDS: Levothyroxine 150 MCG TAB PO SCH (06:33)
[2019-03-15] MEDS: Insulin Lispro (humaLOG) 100 Units/ml Inj SC SCH ×4 (09:27→22:32)
[2019-03-15] MEDS: Pantoprazole 40 mg EC Tab PO SCH (09:30)
[2019-03-15] MEDS: Azithromycin 500 MG in Sodium Chloride 0.9% 250 ML IVPB SCH (09:31)
--- NOTE | 2019-03-15 11:09 | PQF ---
PROVIDER RESPONSE TEXT: Chf ruled in. Mild. H/o cad. Outpt cardio f/u REVIEWER QUERY TEXT: Conflicting Documentation Clarification -OR: Other explanation of clinical finding 03/13: CXR: No active disease 03/14 Echo: The estimated ejection fraction is 55-60% Transmittal Doppler flow pattern is Grade II-ps eudo normal filling dynamics. The left atrium is mildly dilated. There is mild tricuspid valve regur gitation noted. RVSP is calculated at less than 25 mm Hg. 03/14:Angio CT: Pulmonary vascular congestion/CHF. Associated trace right pleural effusion. There are multiple pulmonary nodules that are < 6 mm in size. Probnp:1140-> 14 -lasix IVP once, coreg -- Other, please specify The patient's Clinical Indicators include: -- Query created by: Tiny Hayes on 03/15/2019 9:20 AM Electronically signed by: Vance De Santiago APN 03/15/2019 11:06 AM
--- NOTE | 2019-03-15 11:19 | CP.PCM.PN ---
Subjective - Date & Time of Evaluation Date of Evaluation: 03/15/19 Time of Evaluation: 11:19 - Subjective Subjective: pt doign well. w/o complaints. no f/,c n/v/d. cleared by cardio for dc. tr edcema ble bw noted. hgb, mg and b12 low. Objective - Vital Signs/Intake and Output Vital Signs (last 24 hours): Temp Pulse Resp BP Pulse Ox 98.4 F 70 18 150/68 98 03/15/19 07:51 03/15/19 09:26 03/15/19 07:51 03/15/19 09:26 03/15/19 07:51 - Medications Medications: Current Medications Acetaminophen (Tylenol 325mg Tab) 650 mg PO Q6 PRN PRN Reason: Pain, moderate (4-7) Last Admin: 03/14/19 22:13 Dose: 650 mg Aspirin (Ecotrin) 81 mg PO DAILY [facility] Last Admin: 03/15/19 09:27 Dose: 81 mg Atorvastatin Calcium (Lipitor) 80 mg PO DAILY [facility] Last Admin: 03/15/19 09:28 Dose: 80 mg Carvedilol (Coreg) 6.25 mg PO Q12 [facility] Last Admin: 03/15/19 09:26 Dose: 6.25 mg Clopidogrel Bisulfate (Plavix) 75 mg PO DAILY [facility] Last Admin: 03/15/19 09:29 Dose: 75 mg Home Med (Empagliflozin [Jardiance]) 1 tab PO DAILY [facility] Last Admin: 03/14/19 18:42 Dose: Not Given Home Med (Patient's Own Medication) 1 unit PO DAILY [facility] Azithromycin 500 mg/ Sodium (Chloride) 250 mls @ 250 mls/hr IVPB DAILY [facility]; Protocol Last Admin: 03/15/19 09:31 Dose: 250 mls/hr Ceftriaxone Sodium 1 gm/ (Sodium Chloride) 100 mls @ 100 mls/hr IVPB DAILY [facility]; Protocol Last Admin: 03/14/19 17:09 Dose: 100 mls/hr Insulin Human Lispro (Humalog) 0 units SC ACHS [facility]; Protocol Last Admin: 03/15/19 09:27 Dose: 2 units Levothyroxine Sodium (Synthroid) 150 mcg PO DAILY@0630 [facility] Last Admin: 03/15/19 06:33 Dose: 150 mcg Niacin (Niacin) 500 mg PO DAILY [facility] Last Admin: 03/15/19 09:29 Dose: 500 mg Pantoprazole Sodium (Protonix Ec Tab) 40 mg PO DAILY [facility] Last Admin: 03/15/19 09:30 Dose: 40 mg - Labs Labs: 03/15/19 04:50 03/15/19 04:50 PT 11.5 Seconds (9.8-13.1) 03/13/19 16:56 INR 1.0 03/13/19 16:56 APTT 32.8 Seconds (25.6-37.1) 03/13/19 16:56 - Constitutional Appears: Well, Non-toxic, No Acute Distress - Head Exam Head Exam: ATRAUMATIC, NORMAL INSPECTION, NORMOCEPHALIC - Eye Exam Eye Exam: EOMI, Normal appearance, PERRL Pupil Exam: NORMAL ACCOMODATION, PERRL - ENT Exam ENT Exam: Mucous Membranes Moist, Normal Exam - Neck Exam Neck Exam: Full ROM, Normal Inspection. absent: Lymphadenopathy - Respiratory Exam Respiratory Exam: Clear to Ausculation Bilateral, NORMAL BREATHING PATTERN - Cardiovascular Exam Cardiovascular Exam: REGULAR RHYTHM, RRR, +S1, +S2. absent: Murmur - GI/Abdominal Exam GI & Abdominal Exam: Soft, Normal Bowel Sounds. absent: Tenderness - Extremities Exam Extremities Exam: Full ROM, Normal Capillary Refill, Normal Inspection. absent: Joint Swelling, Pedal Edema - Back Exam Back Exam: NORMAL INSPECTION - Neurological Exam Neurological Exam: Alert, Awake, CN II-XII Intact, Normal Gait, Oriented x3 - Psychiatric Exam Psychiatric exam: Normal Affect, Normal Mood - Skin Skin Exam: Dry, Intact, Normal Color, Warm Assessment and Plan (1) CHF (congestive heart failure) Assessment & Plan: cardio, echo less edema, no sob Status: Acute (2) DVT prophylaxis Assessment & Plan: scd nad ae hose ambulation Status: Acute (3) CAD (coronary artery disease) Assessment & Plan: cardio, dont meds, echo Status: Acute (4) Diabetes type 2, uncontrolled Assessment & Plan: fsbg, riss, insulin, metformin diet Status: Acute
[2019-03-15] MEDS: IRBESARTAN PO SCH (11:23)
[2019-03-15] MEDS: HCTZ PO SCH (11:23)
[2019-03-15 12:08] LABS: HEMOGLOBIN 9.5 g/dL (12.0-16.0); MEAN CELL VOLUME 87.5 fl (81.0-99.0); MEAN CORPUSCULAR HEMOGLOBIN 28.8 pg (27.0-31.0); RBC 3.3 Mil/uL (3.80-5.20); RED CELL DISTRIBUTION WIDTH 13.7 % (11.5-14.5); WHITE BLOOD COUNT 9.3 K/uL (4.8-10.8)
[2019-03-15 12:53] LABS: FERRITIN 67.2 ng/Ml (11.1-264.0)
[2019-03-15 13:01] LABS: IRON 100 ug/dL (37-170)
[2019-03-15 13:11] LABS: % IRON SATURATION 34 % (20-55); TOTAL IRON BINDING CAPACITY 291 ug/dL (250-450)
[2019-03-15] MEDS: Magnesium Oxide 400 mg Tab UD PO SCH (13:47)
--- NOTE | 2019-03-15 17:22 | CP.PCM.DIS ---
Provider - Provider Date of Admission: 03/13/19 20:39 Attending physician: Beny Aldridge MD Consults: 03/13/19 21:16 Cardiology Consult Stat Comment: Consulting Provider: Iris Morgan Consulting Physician: Iris Morgan Reason for Consult: chf 03/14/19 11:09 Pastoral Care Referral Routine Comment: Physician Instructions: Reason For Exam: requests visit from [facility] Time Spent in preparation of Discharge (in minutes): 15 Diagnosis - Discharge Diagnosis (1) CHF (congestive heart failure) Status: Acute (2) DVT prophylaxis Status: Acute (3) CAD (coronary artery disease) Status: Acute (4) Diabetes type 2, uncontrolled Status: Acute Hospital Course - Lab Results Lab Results: Micro Results 03/13/19 21:30 Blood-Venous Blood Culture - Preliminary NO GROWTH AFTER 24 HOURS 03/13/19 21:15 Blood-Venous Blood Culture - Preliminary NO GROWTH AFTER 24 HOURS Most Recent Lab Values WBC 9.3 K/uL (4.8-10.8) 03/15/19 11:50 RBC 3.30 Mil/uL (3.80-5.20) L 03/15/19 11:50 Hgb 9.5 g/dL (12.0-16.0) L 03/15/19 11:50 Hct 28.8 % (34.0-47.0) L 03/15/19 11:50 MCV 87.5 fl (81.0-99.0) 03/15/19 11:50 MCH 28.8 pg (27.0-31.0) 03/15/19 11:50 MCHC 33.0 g/dL (33.0-37.0) 03/15/19 11:50 RDW 13.7 % (11.5-14.5) 03/15/19 11:50 Plt Count 191 K/uL (130-400) 03/15/19 11:50 MPV 11.5 fl (7.2-11.7) 03/15/19 04:50 Neut % (Auto) 74.9 % (50.0-75.0) 03/15/19 04:50 Lymph % (Auto) 18.8 % (20.0-40.0) L 03/15/19 04:50 [place] % (Auto) 5.4 % (0.0-10.0) 03/15/19 04:50 Eos % (Auto) 0.7 % (0.0-4.0) 03/15/19 04:50 Baso % (Auto) 0.2 % (0.0-2.0) 03/15/19 04:50 Neut # (Auto) 6.2 K/uL (1.8-7.0) 03/15/19 04:50 Lymph # (Auto) 1.6 K/uL (1.0-4.3) 03/15/19 04:50 [place] # (Auto) 0.4 K/uL (0.0-0.8) 03/15/19 04:50 Eos # (Auto) 0.1 K/uL (0.0-0.7) 03/15/19 04:50 Baso # (Auto) 0.0 K/uL (0.0-0.2) 03/15/19 04:50 PT 11.5 Seconds (9.8-13.1) 03/13/19 16:56 INR 1.0 03/13/19 16:56 APTT 32.8 Seconds (25.6-37.1) 03/13/19 16:56 D-Dimer, Quantitative 347 ng/mlDDU (0-230) H 03/13/19 16:56 Sodium 136 mmol/l (132-148) 03/15/19 04:50 Potassium 3.9 MMOL/L (3.6-5.0) 03/15/19 04:50 Chloride 97 mmol/L (98-107) L 03/15/19 04:50 Carbon Dioxide 27 mmol/L (22-30) 03/15/19 04:50 Anion Gap 16 (10-20) 03/15/19 04:50 BUN 16 mg/dl (7-17) 03/15/19 04:50 Creatinine 0.8 mg/dl (0.7-1.2) 03/15/19 04:50 Est GFR ( Amer) > 60 03/15/19 04:50 Est GFR (Non-Af Amer) > 60 03/15/19 04:50 POC Glucose (mg/dL) 367 mg/dL (65-110) H 03/15/19 16:27 Random Glucose 233 mg/dL (65-105) H 03/15/19 04:50 Calcium 8.1 mg/dL (8.4-10.2) L 03/15/19 04:50 Phosphorus 3.6 mg/dl (2.5-4.5) 03/15/19 04:50 Magnesium 1.5 MG/DL (1.6-2.3) L 03/15/19 04:50 Iron 100 ug/dL (37-170) 03/15/19 11:50 TIBC 291 ug/dL (250-450) 03/15/19 11:50 % Saturation 34 % (20-55) 03/15/19 11:50 Ferritin 67.2 ng/Ml (11.1-264.0) 03/15/19 11:50 Total Bilirubin 0.5 mg/dl (0.2-1.3) 03/15/19 04:50 AST 16 U/L (14-36) 03/15/19 04:50 ALT 12 U/L (9-52) 03/15/19 04:50 Alkaline Phosphatase 72 U/L (38-126) 03/15/19 04:50 Troponin I < 0.0120 ng/mL (0.00-0.120) 03/14/19 06:10 NT-Pro-B Natriuret Pep 1410 pg/ml (0-900) H 03/14/19 06:10 Total Protein 6.3 G/DL (6.3-8.2) 03/15/19 04:50 Albumin 3.3 g/dL (3.5-5.0) L 03/15/19 04:50 Globulin 3.0 gm/dL (2.2-3.9) 03/15/19 04:50 Albumin/Globulin Ratio 1.1 (1.0-2.1) 03/15/19 04:50 Vitamin B12 225 pg/mL (239-931) L 03/15/19 11:50 Urine Color Straw (YELLOW) 03/13/19 18:17 Urine Clarity Clear (Clear) 03/13/19 18:17 Urine pH 7.0 (5.0-8.0) 03/13/19 18:17 Ur Specific [place] 1.008 (1.003-1.030) 03/13/19 18:17 Urine Protein Negative mg/dL (NEGATIVE) 03/13/19 18:17 Urine Glucose (UA) Neg mg/dL (NEGATIVE) 03/13/19 18:17 Urine Ketones Negative mg/dL (NEGATIVE) 03/13/19 18:17 Urine Blood Negative (NEGATIVE) 03/13/19 18:17 Urine Nitrate Negative (NEGATIVE) 03/13/19 18:17 Urine Bilirubin Negative (NEGATIVE) 03/13/19 18:17 Urine Urobilinogen 0.2-1.0 mg/dL (0.2-1.0) 03/13/19 18:17 Ur Leukocyte Esterase Trace [place]/uL (Negative) 03/13/19 18:17 Urine RBC (Auto) < 1 /hpf (0-3) 03/13/19 18:17 Urine Microscopic WBC 2 /hpf (0-5) 03/13/19 18:17 Ur Squamous Epith Cells 1 /hpf (0-5) 03/13/19 18:17 Stool Occult Blood Negative (NEGATIVE) 03/15/19 13:00 Blood Type A POSITIVE 03/15/19 09:15 Blood Type Confirm A POSITIVE 03/15/19 04:20 Antibody Screen Negative 03/15/19 09:15 BBK History Checked No verified bt 03/15/19 09:15 - Hospital Course Hospital Course: pt admitted for chf, leg and facial swelling, sob. no f/c, n/v/d. had cardio eval and echo. rec'd lasix iner. doing well. w/o complaints. Discharge Exam - Head Exam Head Exam: NORMAL INSPECTION - Eye Exam Eye Exam: EOMI, Normal appearance, PERRL Pupil Exam: NORMAL ACCOMODATION, PERRL - Respiratory Exam Respiratory Exam: Clear to PA & Lateral, NORMAL BREATHING PATTERN, UNREMARKABLE - Cardiovascular Exam Cardiovascular Exam: REGULAR RHYTHM, RRR, +S1, +S2 - GI/Abdominal Exam GI & Abdominal Exam: Normal Bowel Sounds, Soft, Unremarkable - Extremities Exam Extremities exam: full ROM, normal capillary refill, normal inspection, pedal pulses present - Back Exam Back exam: FULL ROM - Neurological Exam Neurological exam: Alert, CN II-XII Intact, Normal Gait, Oriented x3, Reflexes Normal - Psychiatric Exam Psychiatric exam: Normal Affect, Normal Mood - Skin Skin Exam: Dry, Intact, Normal Color, Warm Discharge Plan - Discharge Medications Prescriptions: Cyanocobalamin [Vitamin B12 1000 mcg Tab] 1,000 mcg PO DAILY #30 tab Magnesium Oxide [Mag-Ox] 400 mg PO DAILY #30 tab MetFORMIN [glucoPHAGE] 1,000 mg PO BIDWM #60 tab - Follow Up Plan Condition: STABLE Disposition: HOME/ ROUTINE Instructions: Diabetes and Diet, Heart Failure (DC), Pacemaker (DC), Pulmonary Edema (DC), Ascites (DC) Additional Instructions: final dx-chf, leg edema. no f/c, n/v/d. doing well. cleared by cardio for dc pt has appt today w/ pmd/cardio
[2019-03-15 18:25] LABS: FOLATE 15.8 ng/mL
[2019-03-15] MEDS ORDERED: Insulin Detemir 100 Units/ml Inj SC SCH (22:00)
[2019-03-16] MEDS: Levothyroxine 150 MCG TAB PO SCH (06:37)
[2019-03-16] MEDS: Insulin Lispro (humaLOG) 100 Units/ml Inj SC SCH (06:38)
[2019-03-16 08:10] VITALS: PULSE 78; RESP 18; TEMP 98.6
[2019-03-16] MEDS: Pantoprazole 40 mg EC Tab PO SCH (09:19)
[2019-03-16] MEDS: HCTZ PO SCH (09:19)
[2019-03-16] MEDS: IRBESARTAN PO SCH (09:19)
[2019-03-16] MEDS: Magnesium Oxide 400 mg Tab UD PO SCH (09:19)
[2019-03-16 09:20] VITALS: BP 147/69
[2019-03-16] MEDS: Azithromycin 500 MG in Sodium Chloride 0.9% 250 ML IVPB SCH (09:22)
--- NOTE | 2019-03-17 06:06 | PQF ---
PROVIDER RESPONSE TEXT: Unsp chf REVIEWER QUERY TEXT: CHF Acuity and Type Acute Congestive Heart Failure is documented in the Medical Record. Please document the type if know n Such as: Type: -- Systolic -- Diastolic -- Combined -- Other, please specify 03/14 Echo: Conclusion The estimated ejection fraction is 55-60% . Transmitral Doppler flow pattern i s Grade II-pseudonormal filling dynamics.The left atrium is mildly dilated.There is mild tricuspid va lve regurgitation noted.RVSP is calculated at less than 25 mm Hg. The patient's Clinical Indicators include: -- Query created by: Tiny Hayes on 03/16/2019 2:54 PM Electronically signed by: Vance De Santiago APN 03/17/2019 6:03 AM
[2019-03-18 16:22] VITALS: O2SAT 98
== END 2019-03-16 09:45 | disposition home or self-care (01) | DRG 127 ==
LOC: H.ER 16:13 → H.ERHOLD 20:39 → H.TEL 03-14 08:51
PROVIDERS: ADMIT Family Medicine; ATTEND Family Medicine
DX: I11.0 Hypertensive heart disease with heart failure (principal); E11.65 Type 2 diabetes mellitus with hyperglycemia; E03.9 Hypothyroidism, unspecified; I25.10 Atherosclerotic heart disease of native coronary artery without angina pectoris; I50.9 Heart failure, unspecified; Z79.02 Long term (current) use of antithrombotics/antiplatelets; Z79.82 Long term (current) use of aspirin; Z95.1 Presence of aortocoronary bypass graft; E78.00 Pure hypercholesterolemia, unspecified